=== PATIENT | female | born 1995 | race Caucasian/White ===

== ENCOUNTER 2020-12-06 11:24 | Emergency (ER) | payer OTHER, SELFPAY ==
--- NOTE | ~2020-12-06 | XR_ITS ---
XR hand RT min 3V DATE: 12/06/2020 11:55 INDICATION: Fall. Pain and swelling of distal forearm TECHNIQUE: 3 views COMPARISON: None FINDINGS: No fracture, dislocation, periosteal reaction or bone destruction. IMPRESSION: Negative Reviewed, dictated and finalized at location A. IMPRESSION: Negative
--- NOTE | ~2020-12-06 | XR_ITS ---
XR forearm RT 2V DATE: 12/06/2020 11:55 INDICATION: Fall. Pain and swelling at distal forearm TECHNIQUE: AP and lateral views COMPARISON: None FINDINGS: No fracture or dislocation of the right forearm. Normal alignment at the elbow and wrist joseph ints. IMPRESSION: Negative Reviewed, dictated and finalized at location A. IMPRESSION: Negative
--- NOTE | ~2020-12-06 | XR_ITS ---
[id number] DATE: 12/06/2020 13:09 INDICATION: Fall. Pain under left breast. TECHNIQUE: PA chest. 4 views of left ribs. COMPARISON: None FINDINGS: Normal heart size. No hilar or mediastinal enlargement. No pulmonary infiltrate or consolid ation, pleural effusion or pulmonary vascular congestion or pneumothorax. There is mild levoscoliosis of the thoracic spine. No left rib fracture or bone destruction is detected. IMPRESSION: No evidence of left rib fracture No active cardiopulmonary disease Reviewed, dictated and finalized at Location A. Reviewed, dictated and finalized at location A.
[2020-12-06 11:44] VITALS: BP 133/93; PULSE 83; RESP 20; TEMP 36.6; O2SAT 100
--- NOTE | 2020-12-06 13:34 | ED.FALL ---
HPI - Fall General Chief Complaint: Fall Stated Complaint: fall Time Seen by Provider: 12/06/20 12:45 Source: RN notes reviewed History of Present Illness HPI Narrative: Patient presents emergency department from home for a fall. Patient states that just prior to arrival she began the shower when she slipped and fell striking her right wrist and forearm on the window of the shower and sliding down as well as striking her left ribs patient states she took no medication for the symptoms she denies any her head or any loss of consciousness she denies any other trauma or injury denies any chest pain shortness of breath abdominal pain nausea vomiting or any other symptoms Related Data Allergies Allergy/AdvReac Type Severity Reaction Status Date / Time morphine Allergy Unknown Unknown Verified 03/12/19 15:10 Review of Systems Review of Systems: Narrative: Gen.: Denies fevers or chills Eyes: Denies eye pain or visual change ENT: Denies congestion Respiratory: Denies shortness of breath CV: Denies chest pain GI: Denies abdominal pain nausea, emesis Musculoskeletal: See HPI Neuro: Denies numbness, tingling, weakness or focal weakness Skin: Denies rash Except as documented, all other systems reviewed and negative [facility] Past Medical History Medical History (Updated 12/06/20 @ 13:37 by Bradley Camara DO) Patient denies significant medical history Social History Social History (Updated 12/06/20 @ 13:36 by Bradley Camraa DO) Smoking status: Never smoker Gender identity (if verbalized by the patient): Female Exam Narrative: Exam Narrative: APPEARANCE: No acute distress, nontoxic, resting in bed EYES: EOMI HEENT: Normocephalic, atraumatic, OMM RESPIRATORY: No respiratory distress Clear to auscultation bilaterally with no rhonchi wheezing or rales. CARDIOVASCULAR: Regular rate and rhythm without murmurs rubs or gallops. Chest: Tender palpation of the left anterior lateral ribs in the region of ribs 6 through 8 no sign ecchymosis seen pain with deep inspiration remainder of the chest is nontender to palpation ABDOMINAL: Soft, nontender, nondistended, no rebound or guarding MUSCULOSKELETAl: Moves all extremities. No clubbing, cyanosis or edema. Tender palpation over the right radial wrist and distal forearm no swelling or ecchymosis no tenderness of the hand or elbow or shoulder pain with flexion of the wrist radial pulse 2+ neurovascular intact, full flexion-extension of all 5 MCP and IP joints NEURO: Awake and alert. Following commands, speech normal, no focal deficits SKIN:: Warm, dry. No rashes lesions or abrasions PSYCHIATRIC: Normal affect/mood, Course Course Emergency Course: Discussed with patient results of workup and diagnosis. Discussed need for follow-up with primary care, proper use of medication, and reasons to return to the emergency department. Patient understands and agrees to current treatment plan Vital Signs Vital signs: Vital Signs Temperature 97.9 F 12/06/20 11:44 Pulse Rate 83 12/06/20 11:44 Respiratory Rate 20 12/06/20 11:44 Blood Pressure 133/93 H 12/06/20 11:44 Pulse Oximetry 100 12/06/20 11:44 Temperature 97.9 F 12/06/20 11:44 Pulse Rate 83 12/06/20 11:44 Respiratory Rate 20 12/06/20 11:44 Blood Pressure 133/93 H 12/06/20 11:44 Pulse Oximetry 100 12/06/20 11:44 MDM - Fall Imaging Data Radiologist's impression: ITS Impressions Forearm X-Ray 12/06/20 12:08 IMPRESSION: Negative Hand X-Ray 12/06/20 12:09 IMPRESSION: Negative Ribs w/Chest X-Ray 12/06/20 13:15 IMPRESSION: No evidence of left rib fracture No active cardiopulmonary disease Discharge Plan Discharge Clinical Impression: Contusion of right wrist, Contusion of left chest wall Patient Disposition: Home, Self-Care Condition: Stable Instructions: Antibiotic Form, Contusion in Adults (ED) Additional Instructions: Return for increasing
[2020-12-06] MEDS: IBUPROFEN 600 MG TABLET PO (13:36)
== END 2020-12-06 14:01 | disposition home or self-care (01) ==
PROVIDERS: Emergency Provider Emergency Medicine; PCP Nurse Practitioner Adult Health
DX: S60.211A Contusion of right wrist, initial encounter (principal); S20.212A Contusion of left front wall of thorax, initial encounter; W18.2XXA Fall in (into) shower or empty bathtub, initial encounter
CPT/HCPCS: 71101; 73090; 73130; 99284; A9270

== ENCOUNTER 2021-09-05 15:36 | Emergency (ER) | payer OTHER, SELFPAY ==
--- NOTE | ~2021-09-05 | XR_ITS ---
EXAMINATION: XR elbow RT min 3V INDICATION: Right elbow pain TECHNIQUE: Four views of the right elbow are obtained. COMPARISON: 12/06/2020 FINDINGS: There is no fracture, dislocation, or subluxation. The bones, soft tissues, and joint space s are normal. IMPRESSION: 1. No acute osseous abnormality. 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
--- NOTE | ~2021-09-05 | XR_ITS ---
EXAMINATION: XR wrist RT min 3V INDICATION: Right wrist pain TECHNIQUE: Four views of the right wrist are obtained. COMPARISON: 12/06/2020 FINDINGS: There is no fracture, dislocation, or subluxation. The bones, soft tissues, and joint space s are normal. IMPRESSION: 1. No acute osseous abnormality. Reviewed, dictated and finalized at location F. 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
[2021-09-05 15:39] VITALS: BP 181/87; PULSE 86; RESP 20; TEMP 35.8; O2SAT 100
--- NOTE | 2021-09-05 16:33 | ED.UPPEXIN ---
HPI - Extremity Injury (Upper) General Chief Complaint: Extremity Injury, Upper Stated Complaint: fell and hurt right elbow Time Seen by Provider: 09/05/21 16:02 Source: patient Mode of arrival: ambulatory Limitations: no limitations History of Present Illness HPI narrative: 26 years old white female had a fall out of the bed while rolling over at, landed on the right forearm. 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 No other injuries. Related Data Home Medications Medication Instructions Recorded Confirmed escitalopram oxalate 10 mg PO HS 09/05/21 09/05/21 Allergies Allergy/AdvReac Type Severity Reaction Status Date / Time morphine Allergy Unknown Unknown Verified 09/05/21 15:52 Review of Systems Review of Systems: CONSTITUTIONAL: Denies fever, chills, or sweats. EYES: Denies visual changes, redness, or discharge. ENT: Denies rhinorrhea, congestion, sore throat, or otalgia. CARDIOVASCULAR: Denies chest pain, palpitations, or edema. RESPIRATORY: Denies cough or dyspnea. GASTROINTESTINAL: Denies abdominal pain, nausea, vomiting, or diarrhea. GENITOURINARY: Denies dysuria or hematuria. SKIN: Denies rash or itching. MUSCULOSKELETAL: Denies back pain, joint pain, or myalgia. NEUROLOGIC: Denies headache, numbness, or weakness. PSYCHIATRIC: Denies anxiety or depression. PMFSH Past Medical History Medical History Patient denies significant medical history Social History Social History Smoking status: Never smoker Gender identity (if verbalized by the patient): Female Exam Narrative: General appearance: Well-developed, well-nourished Skin: Normal color Head: Normocephalic, nontraumatic Eyes: Clear conjunctiva ENT: Oropharynx normal, ears normal, nose normal Neck: Supple, nontender Chest and respiratory: Airway patent, no respiratory distress, no accessory muscle use Heart: Regular rate/rhythm Abdomen: Soft, nontender, no organomegaly, quiet bowel sounds Vascular: Normal peripheral pulses, normal capillary refill. 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, no gross motor deficit Course Course Emergency Course: Stable Vital Signs Vital signs: Vital Signs Temperature 35.8 C L 09/05/21 15:39 Pulse Rate 86 09/05/21 15:39 Respiratory Rate 20 09/05/21 15:39 Blood Pressure 181/87 H 09/05/21 15:39 Pulse Oximetry 100 09/05/21 15:39 Temperature 35.8 C L 09/05/21 15:39 Pulse Rate 86 09/05/21 15:39 Respiratory Rate 20 09/05/21 15:39 Blood Pressure 181/87 H 09/05/21 15:39 Pulse Oximetry 100 09/05/21 15:39 MDM - Extremity Injury (Upper) MDM Narrative Medical decision making narrative: Fracture is a possibility Imaging Data Radiologist's impression: Impressions Elbow X-Ray 09/05/21 16:41 IMPRESSION: 1. No acute osseous abnormality. Wrist X-Ray 09/05/21 16:42 IMPRESSION: 1. No acute osseous abnormality. Critical Care Time Critical Care Time Critical Care Time: No Discharge Plan Discharge Clinical Impression: Elbow pain, right Patient Disposition: Home, Self-Care Condition: Stable Instructions: Antibiotic Form, Contusion in Adults (ED) Additional Instructions: Return if symptoms are worsening , call your family physician for appointment, take Tylenol, ibuprofen as as needed for aches and pain, continue home medications., Keep right hand elevated, Prescriptions: No Action escitalopram oxalate 10 mg tablet 10 mg PO HS RF: 0 Follow-up/Re
== END 2021-09-05 17:01 | disposition home or self-care (01) ==
PROVIDERS: Emergency Provider Emergency Medicine; PCP Nurse Practitioner Adult Health
DX: S59.901A Unspecified injury of right elbow, initial encounter (principal); W06.XXXA Fall from bed, initial encounter
CPT/HCPCS: 73080; 73110; 99284

== ENCOUNTER 2022-05-18 08:50 | Outpatient (CLI) | payer OTHER, SELFPAY ==
--- NOTE | 2022-05-18 | ECHO_ITS ---
Patient Info Name: Genevieve Weeks Age: 27 years : 1995 Gender: Female Ht: 66 in Wt: 450 lbs BSA: 3.23 m2 HR: 80 bpm BP: 140 / 109 mmHg Heart Rhythm: Sinus Rhythm Technical Quality: Poor Exam Date: 05/18/2022 9:27 AM Exam Location: [facility] Patient Status: Outpatient Admit Date: 05/18/2022 Staff Ordering Physician: MichaOliva NP Director Social Welfare: Teresa Shell RDCS Attending Provider: DanaOliva NP Exam Type: CA echo doppler color flow Study Info Indications R42 - Dizziness and giddiness Complete two-dimensional, color flow and Doppler transthoracic echocardiogram is performed. Summary 1. Complete two-dimensional, color flow and Doppler transthoracic echocardiogram is performed. 2. Very technically difficult study with limited views. Regional wall motion assessment limited due to poor endomyocardial border definition. 3. Left ventricular chamber dimension is not well visualized. Unable to assess LV systolic function. Repeat study with definity contrast enhancement. 4. The left ventricular diastolic function is normal. 5. E/e' 6.6 is normal. 6. Right ventricular chamber dimension is not well visualized. TAPSE 2.7 suggestive preserved right ventricular systolic function. Left Ventricle Left ventricular chamber dimension is not well visualized. Unable to assess LV systolic function. Repeat study with definity contrast enhancement. The left ventricular diastolic function is normal. E/e' 6.6 is normal. Very technically difficult study with limited views. Regional wall motion assessment limited due to poor endomyocardial border definition. Right Ventricle Right ventricular chamber dimension is not well visualized. TAPSE 2.7 suggestive preserved right ventricular systolic function. Left Atria Left atrial chamber dimension is normal. Right Atria Right atrial chamber dimension is normal. Aortic Valve The aortic valve is not well visualized. Pulmonic Valve The pulmonic valve is not well visualized. Mitral Valve The mitral valve has not well visualized. There is no mitral valve regurgitation. Tricuspid Valve The tricuspid valve leaflets are not well visualized. Pericardium/Pleural The pericardium appears not well visualized. Aorta The aortic root size at the sinus of Valsalva is normal. Left Ventricular Outflow Tract Name Value Normal LVOT 2D LVOT Diameter 2.0 cm Mitral Valve Name Value Normal MV Doppler MV Peak Gradient 3 mmHg MV Mean Gradient 1 mmHg MV Decel [place] 336 cm/s2 MV PHT 59 ms MV Area (PHT) 3.8 cm2 4.0-5.0 MV Diastolic Function MV E Peak Velocity 68 cm/s MV A Peak Velocity 55 cm/s MV E/A
== END 2022-05-18 08:51 | disposition home or self-care (01) ==
LOC: ANHCARD 08:52
PROVIDERS: PCP Nurse Practitioner Adult Health; Visit Provider Nurse Practitioner Adult Health
DX: R42 Dizziness and giddiness (principal)
CPT/HCPCS: 93306

== ENCOUNTER 2023-01-10 10:36 | Emergency (ER) | payer OTHER, SELFPAY ==
[2023-01-10 10:40] VITALS: BP 174/87; PULSE 102; RESP 20; TEMP 36.9; O2SAT 100
--- NOTE | 2023-01-10 12:11 | ED.FEMALEGU ---
HPI - Female Genitourinary General Chief complaint: Vaginal Bleeding Stated complaint: vaginal bleeding Time Seen by Provider: 01/10/23 12:00 History of Present Illness HPI Narrative: Patient is a 27-year-old G2, P1 presenting with vaginal bleeding. Patient states that she has struggled with irregular vaginal bleeding and periods for several months. States that for the last several days she has been bleeding more heavily and passing blood clots. States that she has been soaking thick overnight pads approximately every 4 hours. States that she called to make an appointment with [facility]ST[facility] today and the triage nurse told her to come to the ER for further evaluation. States that she does have an appointment with [facility]ST[facility] in approximately 1 week. Currently she complains of mild bilateral lower abdominal cramping. Denies fevers, numbness or weakness, chest pain, shortness of breath, lightheadedness, leg swelling, dysuria. Related Data Home Medications Medication Instructions Recorded Confirmed famotidine 20 mg tablet 20 mg PO 01/17/23 Allergies Allergy/AdvReac Type Severity Reaction Status Date / Time morphine Allergy Mild Hives Verified 01/17/23 11:08 Review of Systems Review of Systems: All systems reviewed & are unremarkable except as noted in HPI and below PMFSH Past Medical History Medical History (Updated 01/17/23 @ 13:10 by Kermit Nicholas MD) Patient denies significant medical history Surgical History Surgical History (Updated 01/17/23 @ 11:10 by Cleo Quintana [facility]) History of delivery Social History Social History (Updated 01/17/23 @ 11:10 by Cleo Quintana [facility]) Smoking status: Never smoker Alcohol intake: never Substance use: never Living arrangements: with family Occupation/Education: occupation 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 HEAD: Normocephalic, atraumatic. EYES: PERRLA and EOMI. ENT: Nares clear, no rhinorrhea or epistaxis. Mucous membranes moist. NECK: Supple. CHEST: Clear to auscultation. No respiratory distress. HEART: Regular rate and rhythm ABDOMEN: Soft, nontender, nondistended EXTREMITIES: Normal range of motion. No edema. SKIN: Warm, dry, no rash. NEURO: No focal deficits. Alert and oriented x3. PSYCH: Normal mood and affect. Course Vital Signs Vital signs: Vital Signs Temperature 98.5 F 01/10/23 10:40 Pulse Rate 102 H 01/10/23 10:40 Respiratory Rate 20 01/10/23 10:40 Blood Pressure 174/87 H 01/10/23 10:40 Pulse Oximetry 100 01/10/23 10:40 Oxygen Delivery Room Air 01/10/23 10:40 Temperature 98.5 F 01/10/23 10:40 Pulse Rate 78 01/10/23 14:20 Respiratory Rate 20 01/10/23 14:20 Blood Pressure 133/86 01/10/23 14:20 Pulse Oximetry 100 01/10/23 14:20 Oxygen Delivery Room Air 01/10/23 10:40 MDM - Female Genitourinary MDM Narrative Medical decision making narrative: Patient is a 27-year-old female presenting with heavy vaginal bleeding for several days. Vitals within normal limits. Exam remarkable for the above. Plan for blood work, IV Toradol, fluids. Blood work with hemoglobin of 8.1. No priors for comparison. Remainder of blood work is unremarkable. Beta-hCG is undetectable. Vital signs remain within normal limits. Patient reports a long history of abnormal uterine bleeding. Feel she is safe for outpatient management at her scheduled appointment next week. We will get her started on scheduled NSAIDs to help control the uterine bleeding. Advised that she call her OB to discuss today's work-up. Strict return precautions were given. Patient voiced understanding and is agreeable with plan. Discharged in stable condition. Differential Diagnosis Differential diagnosis: Likely dysmenorrhea Medical Records Attestation: I reviewed the
[2023-01-10] MEDS: KETOROLAC 30 MG/ML VIAL (*BKC) IV PUSH (12:41)
[2023-01-10] MEDS: SODIUM CHLORIDE 0.9% IV 1,000 ML 999 ML IV CONT (12:42)
[2023-01-10 12:44] VITALS: BP 129/59; PULSE 78
[2023-01-10 12:46] VITALS: BP 142/89; PULSE 94
[2023-01-10 12:48] VITALS: BP 158/108; PULSE 94
[2023-01-10 12:49] LABS: Basophils Percent Auto 0.3 % (0.2-1.2); Eosinophils Percent Auto 0.5 % (0-4.4); Hematocrit 28.1 % (37.0-47.0); Hemoglobin 8.1 g/dL (12.0-15.0); Immature Granulocyte Absolute 0.05 K/mm3 (0.00-0.031); Immature Granulocyte Percent A 0.6 % (0-0.5); Lymphocytes Absolute Auto 1.65 K/mm3 (0.9-3.2); Lymphocytes Percent Auto 19.2 % (18.3-44.2); Mean Corpuscular HGB Conc 28.8 g/dl (32-36); Mean Corpuscular Hemoglobin 20.7 pg (26-34); Mean Corpuscular Volume 71.7 fl (80-100); Mean Platelet Volume 9.5 fl (7.4-10.4); Monocytes Absolute Auto 0.6 K/mm3 (0.1-0.6); Monocytes Percent Auto 6.4 % (2.6-8.5); Neutrophils Absolute Auto 6.3 K/mm3 (1.3-6.7); Platelet Count Result 299 k/mm3 (150-375); Red Blood Count 3.92 M/mm3 (4.2-5.4); Red Cell Distribution Width 18.6 % (11.5-14.5); White Blood Count 8.6 K/mm3 (4.5-10.0)
[2023-01-10 12:55] LABS: Alanine Aminotransferase 24 U/L (6-35); Albumin Level 3.8 g/dL (3.5-5.1); Alkaline Phosphatase 67 U/L (38-126); Anion Gap 2 mmol/L (8-16); Aspartate Amino Transferase 27 U/L (14-36); Bilirubin,Total 0.6 mg/dL (0.2-1.3); Blood Urea Nitrogen 10 mg/dL (7-17); Calcium 8.4 mg/dL (8.4-10.2); Carbon Dioxide 29 mmol/L (22-30); Chloride 105 mmol/L (98-107); Estimated CRCL calculation 229 ml/min; Estimated Glomerular Filt Rate > 60; Glucose 92 mg/dL (65-110); Potassium 3.9 mmol/L (3.4-5.0); Sodium 136 mmol/L (137-145)
[2023-01-10 12:57] LABS: Bacteria Urine None Seen /hpf; Non Pathogenic Casts 0-2; RBC Urine >100 /hpf (0-2); Squamous Epithelial Cell Urine None seen /hpf (Few)
[2023-01-10 12:58] LABS: Platelet Estimate Adequate (Adequate)
[2023-01-10 12:59] LABS: Anisocytosis 1+ (NORMAL); Hypochromasia 1+ (NORMAL); Ovalocytes 1+ (NORMAL); Schistocytes None Seen (NORMAL)
[2023-01-10 13:00] LABS: INR 1.1; Prothrombin Time 14.3 Seconds (11.1-14.7)
[2023-01-10 13:11] LABS: Beta HCG Quantitative < 2.39 mIU/ML
[2023-01-10 13:15] LABS: Appearance Urine Clear (Clear); Bilirubin Urine Negative (Negative); Blood Urine 3+ (Negative); Color Urine Yellow (Yellow); Glucose Urine UA Negative (Negative); Ketones Urine Negative (Negative); Leukocyte Esterase Ur Trace LEU/UL (Negative); Nitrate Urine Negative (Negative); Protein Urine Negative (Negative); Specific Grav Ur 1.011 (1.001-1.035); pH Urine 7.5 (5.0-9.0)
[2023-01-10 13:19] LABS: Add Urine Microscopic? YES
[2023-01-10 14:20] VITALS: BP 133/86; PULSE 78; RESP 20; O2SAT 100
== END 2023-01-10 14:59 | disposition home or self-care (01) ==
PROVIDERS: Emergency Provider Emergency Medicine; PCP Family Medicine
DX: N93.8 Other specified abnormal uterine and vaginal bleeding (principal)
CPT/HCPCS: 36415; 80053; 81001; 84702; 85025; 85610; 85730; 86850; 86900; 86901; 87077; 87086; 87088; 96361; 96374; 99284; J1885; J7030

== ENCOUNTER 2023-01-23 10:16 | Outpatient (CLI) | payer OTHER, SELFPAY ==
[2023-01-23 11:16] LABS: Hemoglobin A1C 5.4 % (<5.7)
[2023-01-27 04:47] LABS: FSH 7.8 mIU/mL (***); LH 6.4 mIU/mL (***)
[2023-01-27 10:12] LABS: Testosterone Total 39 ng/dL (2-45)
[2023-01-27 22:06] LABS: Estradiol, Ultrasensitive 31 pg/mL
== END 2023-01-23 10:17 | disposition home or self-care (01) ==
PROVIDERS: Visit Provider Student in an Organized Health Care Education/Training Program
DX: N93.9 Abnormal uterine and vaginal bleeding, unspecified (principal)
CPT/HCPCS: 36415; 82670; 83001; 83002; 83036; 84403; 84443

== ENCOUNTER 2023-06-19 13:41 | Emergency (ER) | payer OTHER, SELFPAY ==
[2023-06-19 13:52] VITALS: BP 144/67; PULSE 72; RESP 16; TEMP 36.9; O2SAT 100
--- NOTE | 2023-06-19 14:10 | ED.URI ---
HPI - URI/Sore Throat General Chief Complaint: Upper Respiratory Infection Stated Complaint: cough Time Seen by Provider: 06/19/23 14:10 Source: patient Mode of arrival: ambulatory Limitations: no limitations History of Present Illness HPI Narrative: 28-year-old female presents with complaint of cough, chest congestion for 1 week. Reports that she can taste bacterial infection and her mouth when coughing. Taking [id number] Mucinex with cough suppressant with little relief of symptoms. Reports that cough is getting progressively worse. No chest pain or shortness of breath. Sore throat only when coughing. All systems reviewed and negative except as noted above. Related Data Home Medications Medication Instructions Recorded Confirmed famotidine 20 mg tablet 20 mg PO DAILY 01/17/23 06/19/23 ferrous sulfate 325 mg (65 mg 325 mg PO DAILY 02/14/23 06/19/23 iron) tablet Allergies Allergy/AdvReac Type Severity Reaction Status Date / Time morphine Allergy Mild Hives Verified 06/19/23 14:04 Review of Systems Review of Systems: CONSTITUTIONAL: Denies fever, chills, or sweats. EYES: Denies visual changes, redness, or discharge. ENT: Denies rhinorrhea, congestion, sore throat, or otalgia. CARDIOVASCULAR: Denies chest pain, palpitations, or edema. RESPIRATORY: Reports cough. Denies dyspnea. GASTROINTESTINAL: Denies abdominal pain, nausea, vomiting, or diarrhea. GENITOURINARY: Denies dysuria or hematuria. SKIN: Denies rash or itching. MUSCULOSKELETAL: Denies back pain, joint pain, or myalgia. NEUROLOGIC: Denies headache, numbness, or weakness. PSYCHIATRIC: Denies anxiety or depression. All other systems reviewed are negative, except as documented in HPI. 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 There is no relevant family history pertinent to the presenting complaint. Exam Narrative: GENERAL: This is a well-nourished, well-developed patient, in no apparent distress. HEAD: normocephalic, atraumatic. EYES: PERRL. Sclera clear/white. Vision is grossly intact. EARS: External ears normal, auditory canals clear and without drainage, TMs normal without perforation. Hearing grossly intact. NOSE: External nose normal with no obvious nasal discharge, nares without redness, no rhinorrhea. THROAT: Mucous membranes moist, posterior pharynx clear. NECK: Neck supple, non-tender without lymphadenopathy, masses or thyromegaly. CARDIOVASCULAR: Regular rate and rhythm without murmurs, gallops, or rubs. RESPIRATORY: decreased to lower lung yanez otherwise clear. Breath sounds equal bilaterally. No wheezes, rales, or rhonchi. SKIN: warm, Dry, intact with no suspicious lesions or rash, good texture and turgor. NEURO: awake, alert, and oriented to person, place and time. There were no obvious focal neurologic abnormalities. EXTREMITIES: No joint tenderness, effusion, or edema noted. Course Course Level of Care: Express Care Visit Vital Signs Vital signs: Vital Signs Temperature 36.9 C 06/19/23 13:52 Pulse Rate 72 06/19/23 13:52 Respiratory Rate 16 06/19/23 13:52 Blood Pressure 144/67 H 06/19/23 13:52 Pulse Oximetry 100 06/19/23 13:52 Temperature 36.9 C 06/19/23 13:52 Pulse Rat
== END 2023-06-19 14:27 | disposition home or self-care (01) ==
PROVIDERS: Emergency Provider Nurse Practitioner Family
DX: J06.9 Acute upper respiratory infection, unspecified (principal)
CPT/HCPCS: 99213; G0463

== ENCOUNTER 2023-08-10 11:20 | Emergency (ER) | payer OTHER, SELFPAY ==
--- NOTE | 2023-08-10 11:25 | ED.DIZZY ---
HPI - Dizziness General Chief Complaint: Ear Stated Complaint: both ears ringing ,felling off Balance Source: patient Mode of arrival: ambulatory Limitations: no limitations History of Present Illness HPI Narrative: Leighann is a 28-year-old female patient presenting to clinic today with complaints of ringing in her ears and feeling off balance for the past week. Was diagnosed with URI back in May and reports she has been having some ear popping ever since. States that this is giving her a lot of anxiety and she is just ?over it?. Last time this happened she reports her primary care provider order her some anxiety medications. Dizziness happens when patient is lying, sitting, or standing and does not appear to change with positions. States that is more when she feels anxious. Related Data Home Medications Medication Instructions Recorded Confirmed famotidine 20 mg tablet 20 mg PO DAILY 01/17/23 08/10/23 ferrous sulfate 325 mg (65 mg 325 mg PO DAILY 02/14/23 08/10/23 iron) tablet Allergies Allergy/AdvReac Type Severity Reaction Status Date / Time morphine Allergy Mild Hives Verified 06/19/23 14:04 Review of Systems Review of Systems: Pertinent positives per HPI. Patient denies any fever, chills, rash, headache, visual changes, dizziness, cough, runny nose, sore throat, shortness of breath, chest pain, palpitations, nausea, vomiting, diarrhea, constipation, abdominal pain, or any urinary issues. 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 There is no relevant family history pertinent to the patient complaint. Exam Narrative: General: Well-developed, well nourished, in no apparent distress Head: Normocephalic, atraumatic Eyes: Pupils equally round and reactive to light bilaterally, EOM intact, sclera and conjunctive clear, no discharge, lids normal, no nystagmus Ears: TMs intact, congestion, mild redness of the TM without obvious infection, ear canals clear, no drainage, grossly hearing normal. Nose: Nares patent, clear nasal discharge, no inflammation, no sinus tenderness. Mouth: Oropharynx without lesions or masses, good dentition, MMM. Neck: Supple, trachea midline, no enlargement of anterior or posterior cervical nodes, no thyroid masses or goiter palpable. Cardio: Regular rate and rhythm, s1 and s2 normal, no murmur appreciated. Resp: Clear to auscultation bilaterally anteriorly and posteriorly, no rhonchi, rales, wheezing or rubs Musculoskeletal: No deformity, non-tender to palpation, grossly normal range of motion, muscle strength strong and equal, peripheral pulse strong, no edema, no cyanosis, normal gait and station Neuro: Alert and oriented x4 with normal speech, no focal deficits, cranial nerves I through XII intact, muscle strength 5 out of 5, sensation intact bilaterally, negative Romberg test Course Course Emergency Course: Portions of this record may have been created with voice recognition software. Level of Care: Express Care Visit Vital Signs Vital signs: Vital signs reviewed MDM - Dizziness MDM Narrative Medical decision making narrative: At the time of visit patient is resting comfortably on the exam table. Patient appe
[2023-08-10 11:30] VITALS: BP 157/83; PULSE 70; RESP 16; TEMP 37.1; O2SAT 99
== END 2023-08-10 11:59 | disposition home or self-care (01) ==
PROVIDERS: Emergency Provider Nurse Practitioner Family
DX: R42 Dizziness and giddiness (principal); H93.13 Tinnitus, bilateral; H65.03 Acute serous otitis media, bilateral
CPT/HCPCS: 99213; G0463

== ENCOUNTER 2023-08-13 09:59 | Emergency (ER) | payer OTHER, SELFPAY ==
[2023-08-13] VITALS (19 sets, daily range): BP systolic 129–165; BP diastolic 67–112; PULSE 70–101; RESP 14–25; TEMP 36.6; O2SAT 97–100
--- NOTE | ~2023-08-13 | XR_ITS ---
XR chest 1V portable DATE: 08/13/2023 10:43 INDICATION: Lightheadedness. Anxiety. TECHNIQUE: 2 portable upright AP views on 08/13/2023 at 1039 and 1040 hours COMPARISON: None FINDINGS: Heart size appears within normal range considering magnification associated with AP project ion. There is pulmonary vascular redistribution which may indicate mild pulmonary venous hypertension; cli nical correlation is advised. No pulmonary infiltrate or consolidation, pleural effusion or pneumothorax is detected. IMPRESSION: Pulmonary vascular redistribution suggests possible mild pulmonary venous hypertension. C linical correlation is recommended. Reviewed, dictated and finalized at location [facility] IMPRESSION: Pulmonary vascular redistribution suggests possible mild pulmonary venous hypertension. Clinical correlation is recommended.
--- NOTE | 2023-08-13 10:17 | ED.GENADULT ---
HPI - General Adult General Chief complaint: Anxiety Stated complaint: ANXIETY [id number] Time Seen by Provider: 08/13/23 10:13 Source: patient Mode of arrival: ambulatory Limitations: no limitations History of Present Illness HPI narrative: This is a 28-year-old female with PMH of anxiety presents to the ED with chief complaint of worsening anxiety for the past week or so. Reports she has a lot of life stressors right now including trying to get into place to live by certain date this month. Reports today she tried to work out and felt some lightheadedness and nausea. She reports anxiety acutely worsened. Reports feeling out of control and racing thoughts. States that she was on anxiety and depression medications but stopped them 2 years ago and had been doing well up until recently. Denies SI or HI. Denies fevers, chills, chest pain, shortness of breath, numbness, weakness. Related Data Home Medications Medication Instructions Recorded Confirmed ferrous sulfate 325 mg (65 mg 325 mg PO DAILY 02/14/23 08/13/23 iron) tablet Allergies Allergy/AdvReac Type Severity Reaction Status Date / Time morphine Allergy Mild Hives Verified 08/13/23 10:45 PMFSH Past Medical History Medical History Abnormal 24 hour urinary cortisol measurement Patient denies significant medical history Surgical History Surgical History History of delivery Social History Social History Smoking status: Never smoker Alcohol intake: never Substance use: never Substance use type: does not use Living arrangements: with family Occupation/Education: occupation 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 morbidly obese HEAD: Normocephalic, atraumatic. EYES: PERRLA and EOMI. ENT: Nares clear, no rhinorrhea or epistaxis. Mucous membranes moist. Oropharynx without tonsillar hypertrophy exudate or other lesions. NECK: Supple. No adenopathy or masses. CHEST: No respiratory distress. Clear to auscultation. No wheezes rales or rhonchi HEART: Regular rate and rhythm. No murmur heard. Normal peripheral pulses. ABDOMEN: Soft, nontender, nondistended, normal active bowel sounds. MSK: Normal range of motion. No edema. SKIN: Warm, dry, no rash. NEURO: Alert and oriented x3. No focal deficits. PSYCH: Normal mood and affect. Course Vital Signs Vital signs: Vital Signs Temperature 98 F 08/13/23 10:00 Pulse Rate 101 H 08/13/23 10:00 Respiratory Rate 16 08/13/23 10:00 Blood Pressure 149/97 H 08/13/23 10:00 Pulse Oximetry 98 08/13/23 10:00 Oxygen Delivery Room Air 08/13/23 10:00 Temperature 98 F 08/13/23 10:00 Pulse Rate 101 H 08/13/23 10:00 Respiratory Rate 16 08/13/23 10:00 Blood Pressure 149/97 H 08/13/23 10:00 Pulse Oximetry 98 08/13/23 10:00 Oxygen Delivery Room Air 08/13/23 10:00 Medical Decision Making [facility] Narrative Medical decision making narrative: This is a 28-year-old female who presents to the ED with chief complaint of anxiety for 1 week and worse today. Vitals are normal. She had a little bit of lightheadedness today but no chest pain or shortness of breath. EKG shows normal sinus rhythm. Lab work unremarkable. Symptoms are consistent with anxiety. She was given Ativan for anxiety and Toradol headache. She feels improved after interventions in the ED. anger sure to discuss anxiety with PCP and with counselor. Pt will be discharged in stable condition. Return precautions given and supportive measures discussed. Pt is understanding and agreeable with plan for discharge and follow-up with PCP. Vital Signs Vital Signs: Vital Sig
--- NOTE | 2023-08-13 10:18 | ECG_ITS ---
Measurements Intervals Oley Rate: 77 P: 42 MT: 156 QRS: 24 QRSD: 106 T: 11 QT: 363 QTc: 413 Interpretive Statements SINUS RHYTHM NORMAL ECG NO PREVIOUS ECG AVAILABLE FOR COMPARISON Electronically Signed On 08-13-2023 14:25:57 [employer] by Efraín Brantley D.O.
[2023-08-13 10:42] LABS: Basophils Percent Auto 0.4 % (0.2-1.2); Eosinophils Percent Auto 0.1 % (0-4.4); Hemoglobin 14.4 g/dL (12.0-15.0); Immature Granulocyte Absolute 0.02 K/mm3 (0.00-0.031); Immature Granulocyte Percent A 0.2 % (0-0.5); Lymphocytes Absolute Auto 1.16 K/mm3 (0.9-3.2); Lymphocytes Percent Auto 12.5 % (18.3-44.2); Mean Corpuscular HGB Conc 29.4 g/dl (32-36); Mean Corpuscular Volume 85.1 fl (80-100); Mean Platelet Volume 10.3 fl (7.4-10.4); Monocytes Absolute Auto 0.6 K/mm3 (0.1-0.6); Monocytes Percent Auto 6.4 % (2.6-8.5); Neutrophils Absolute Auto 7.5 K/mm3 (1.3-6.7); Neutrophils Percent Auto 80.4 % (45.5-73.1); Platelet Count Result 269 k/mm3 (150-375); Red Blood Count 5.76 M/mm3 (4.2-5.4); Red Cell Distribution Width 16.8 % (11.5-14.5); White Blood Count 9.3 K/mm3 (4.5-10.0)
[2023-08-13 10:52] LABS: Anion Gap 12 mmol/L (8-16); Blood Urea Nitrogen 9 mg/dL (7-17); Calcium 9.2 mg/dL (8.4-10.2); Carbon Dioxide 23 mmol/L (22-30); Chloride 104 mmol/L (98-107); Estimated CRCL calculation 165 ml/min; Estimated Glomerular Filt Rate > 60; Glucose 100 mg/dL (65-110); Potassium 3.9 mmol/L (3.4-5.0); Sodium 139 mmol/L (137-145)
[2023-08-13] MEDS: KETOROLAC 15 MG/ML VIAL (*BKC) IV PUSH (10:55)
[2023-08-13] MEDS: LORazepam INJ (*CRX) 2 MG/ML VIAL 0.5 MG IV PUSH (10:56)
== END 2023-08-13 12:41 | disposition home or self-care (01) ==
PROVIDERS: Emergency Provider Physician Assistant
DX: F41.9 Anxiety disorder, unspecified (principal)
CPT/HCPCS: 36415; 71045; 80048; 85025; 93005; 96374; 96375; 99284; J1885; J2060

== ENCOUNTER 2024-01-09 10:51 | Emergency (ER) | payer OTHER, SELFPAY ==
[2024-01-09 11:02] VITALS: BP 155/110; PULSE 81; RESP 16; TEMP 36.8; O2SAT 99
[2024-01-09 11:05] VITALS: BP 155/110; PULSE 81; RESP 16; TEMP 36.8; O2SAT 99
--- NOTE | 2024-01-09 11:08 | ED.DENTAL ---
HPI - Dental/Oral General Chief complaint: Dental/Oral Stated complaint: right side tooth pain Time Seen by Provider: 01/09/24 11:12 Source: patient Mode of arrival: ambulatory History of Present Illness HPI Narrative: 28-year-old female presented for complaint of right upper dental pain over the past 5 days. She states she has taken Tylenol and Orajel with no relief. denies gum or facial swelling, painful chewing, sinus congestion or dental injury. Reports history of TMJ but states she has had no clicking, locking or popping of the jaw. MD Complaint: tooth pain Related Data Home Medications Medication Instructions Recorded Confirmed ferrous sulfate 325 mg (65 mg 325 mg PO DAILY 02/14/23 01/09/24 iron) tablet buspirone 5 mg tablet 10 mg PO DAILY 09/12/23 01/09/24 escitalopram oxalate 10 mg tablet 20 mg PO DAILY 09/12/23 01/09/24 (Lexapro) metoprolol succinate 50 mg 50 mg PO DAILY 09/12/23 01/09/24 tablet,extended release 24 hr amlodipine 5 mg tablet 5 mg PO DAILY 01/09/24 01/09/24 famotidine 20 mg tablet 20 mg PO DAILY 01/09/24 01/09/24 Allergies Allergy/AdvReac Type Severity Reaction Status Date / Time morphine Allergy Mild Hives Verified 09/12/23 13:04 Review of Systems Review of Systems: CONSTITUTIONAL: Denies body aches, fever, chills ENT: Denies rhinorrhea, congestion, sore throat, or otalgia. Reports dental pain CARDIOVASCULAR: Denies chest pain, palpitations RESPIRATORY: Denies cough or dyspnea. SKIN: Denies rash, itching, or wounds. MUSCULOSKELETAL: Denies myalgia. NEUROLOGIC: Denies headache, numbness, tingling, or weakness. [facility] Past Medical History Medical History Abnormal 24 hour urinary cortisol measurement Abnormal uterine bleeding (AUB) Anxiety HTN (hypertension) Obesity Patient denies significant medical history Surgical History Surgical History History of delivery Social History Social History Smoking status: Never smoker Alcohol intake: never Substance use: never Substance use type: does not use Current Housing: Decline to Answer Concerned About Future Housing: Decline to Answer Difficulty Paying Gas/Electric Bills: Decline to Answer Difficulty Paying for Meds: Decline to Answer Currently Unemployed: Decline to Answer Education: Decline to Answer Difficulty w/ Childcare or Family Care: Decline to Answer Living arrangements: with family Occupation/Education: occupation 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 Please see nursing chart for further information. There is no relevant family history pertinent to the presenting complaint Exam Narrative: GENERAL: Appears in mild pain; no acute distress. HEAD: Normocephalic, atraumatic. EYES: EOMI. No redness or drainage. Conjunctivae normal. ENT: Dental pain location of #2, No gum swelling or drainage; no corresponding facial swelling or tenderness; Mucous membranes pink and moist. TMs normal bilaterally. Throat normal. Uvula midline.no dysphagia, odynophagia, dysphonia, or dyspnea. NECK: Normal AROM. No lymphadenopathy.no induration below mandible, no neck pain. SKIN: Warm, dry, no rash. Normal skin turgor. NEURO: No focal deficits. Alert and oriented x3. Gait steady. Course Course Emergency Course: Patient is aware of diagnosis, understands and agrees to treatment plan. Anticipatory guidance given. Patient agrees to follow-up as directed and is aware of reasons to seek care at the emergency department. Portions of this record may
== END 2024-01-09 11:27 | disposition home or self-care (01) ==
PROVIDERS: Emergency Provider Nurse Practitioner Family; PCP Physician Assistant
DX: K08.89 Other specified disorders of teeth and supporting structures (principal); I10 Essential (primary) hypertension; E66.9 Obesity, unspecified; Z68.45 Body mass index [BMI] 70 or greater, adult; F41.9 Anxiety disorder, unspecified
CPT/HCPCS: 99213; G0463